=== PATIENT | female | born 1995 | race Caucasian/White ===

== ENCOUNTER 2020-02-16 10:25 | Emergency (ER) | payer SELFPAY ==
[2020-02-16] MEDS ORDERED: MORPHINE SULFATE INJ 10 MG/ML VIAL IV ONE (10:43)
[2020-02-16] MEDS ORDERED: ONDANSETRON INJ 4 MG/2 ML VIAL IV ONE (10:44)
[2020-02-16 10:54] VITALS: O2SAT 99
--- NOTE | 2020-02-16 10:54 | ED.PDOC ---
History of Present Illness - General Chief Complaint: Abdominal Pain Stated Complaint: Back and abdominal pain Time Seen by Provider: 02/16/20 10:38 Information Source: patient Exam Limitations: no limitations Additional Information: The patient is a 25 year old with no significant PMH who presents to the ED complaining of abdominal pain. States that she has right flank pain that woke her from sleep this morning around 0200. The pain is sharp, radiates toward the front. She does not have associated fever, nausea or vomiting. No diarrhea. Does not think that she is . States that she last urinated yesterday and it was orange in color. No other complaints at this time. Review of Systems - Review of Systems Constitutional: Denies: chills, fever EENTM: States: no symptoms reported Respiratory: States: no symptoms reported Cardiology: States: no symptoms reported Gastrointestinal/Abdominal: States: abdominal pain. Denies: diarrhea, nausea, vomiting Genitourinary: States: hematuria. Denies: dysuria, frequency Musculoskeletal: States: back pain Skin: States: no symptoms reported Neurological: States: no symptoms reported Endocrine: States: no symptoms reported Hematologic/Lymphatic: States: no symptoms reported All other Systems: No Change from Baseline Family Medical History - Family History Mother Family History: Unknown Living Status: Unknown Physical Exam - Physical Exam General Appearance: Anxious, Restless Respiratory: no respiratory distress Cardiovascular/Chest: normal peripheral pulses, regular rate, rhythm Gastrointestinal/Abdominal: normal bowel sounds, tenderness, other - Right CVAT and right flank tenderness including RUQ and RLQ. Extremity: normal range of motion, normal inspection Neurologic: no motor/sensory deficits, alert, normal mood/affect, oriented x 3 Skin Exam: normal color, warm/dry Progress - Progress Progress: 02/16/20 12:34 Patient reassessed, states that her pain has improved although she continues to have RUQ tenderness. She states that for the past week she has had intermittent RUQ pain, worse with eating. 02/16/20 13:32 Patient reassessed, feeling better. Discussed labs and imaging, will continue outpatient symptomatic management for peptic ulcer disease. No evidence for ureterolithiasis or cholelithiasis. No other acute process. - Results/Orders Results/Orders: Laboratory Results - last 24 hr 02/16/20 02/16/20 02/16/20 10:50 10:50 10:50 WBC 9.0 RBC 5.10 Hgb 15.6 Hct 46.4 MCV 90.8 MCH 30.5 MCHC 33.6 RDW 12.8 Plt Count 240 MPV 8.7 Absolute Neuts (auto) 5.30 Absolute Lymphs (auto) 2.90 Absolute Monos (auto) 0.80 Absolute Eos (auto) 0.10 Absolute Basos (auto) 0.00 Neutrophils % 58.4 Lymphocytes % 31.9 Monocytes % 8.5 Eosinophils % 0.8 L Basophils % 0.4 Sodium 139 Potassium 3.9 Chloride 105 Carbon Dioxide 26 Anion Gap 11.9 L BUN 15 Creatinine 0.75 BUN/Creatinine Ratio 20.0 Random Glucose 101 Serum Osmolality 278.5 Calcium 9.3 Total Bilirubin 0.4 AST 22 ALT 18 Alkaline Phosphatase 33 L Serum Total Protein 8.5 H Albumin 4.2 Globulin 4.3 H Albumin/Globulin Ratio 1.0 L Lipase 27 Serum HCG, Qual Negative Urine Color Urine Appearance Urine pH Ur Specific [employer] Urine Protein Urine Glucose (UA) Urine Ketones Urine Blood Urine Nitrite Urine Bilirubin Urine Urobilinogen Ur Leukocyte Esterase Urine RBC Urine WBC Ur Epithelial Cells Urine Bacteria 02/16/20 11:05 WBC RBC Hgb Hct MCV MCH MCHC RDW Plt Count MPV Absolute Neuts (auto) Absolute Lymphs (auto) Absolute Monos (auto) Absolute Eos (auto) Absolute Basos (auto) Neutrophils % Lymphocytes % Monocytes % Eosinophils % Basophils % Sodium Potassium Chloride Carbon Dioxide Anion Gap BUN Creatinine BUN/Creatinine Ratio Random Glucose Serum Osmolality Calcium Total Bilirubin AST ALT Alkaline Phosphatase Serum Total Protein Albumin Globulin Albumin/Globulin Ratio Lipase Serum HCG, Qual Urine Color Yellow Urine Appearance Clear Urine pH 7.0 Ur Specific [employer] 1.020 Urine Protein Negative Urine Glucose (UA) Negative Urine Ketones Negative Urine Blood Moderate H Urine Nitrite Negative Urine Bilirubin Negative Urine Urobilinogen 0.2 Ur Leukocyte Esterase Negative Urine RBC 0-1 Urine WBC 0 Ur Epithelial Cells 5-10 Urine Bacteria 1+ - EKG/XRAY/CT CT: No stones, large gallbladder, diverticulosis. No acute process CT Ordered: Yes Departure - Departure Clinical Impression: Abdominal pain Qualifiers: Abdominal location: right upper quadrant Qualified Code(s): R10.11 - Right upper quadrant pain Time of Disposition: 13:34 Disposition: Discharge to Home or Self Care Condition: Fair Departure Forms: ED Discharge - Pt. Copy, Patient Portal Self Enrollment Instructions: DI for Abdominal Pain-Adult Diet: resume usual diet Activity: increase activity as tolerated Prescriptions: Dicyclomine HCl [Bentyl] 20 mg PO Q6HR #20 tab Pantoprazole Tablet [Protonix] 40 mg PO ACBK #20 tab Home Medications: Ambulatory Orders Dicyclomine HCl [Bentyl] 20 mg PO Q6HR #20 tab 02/16/20 Pantoprazole Tablet [Protonix] 40 mg PO ACBK #20 tab 02/16/20
--- NOTE | 2020-02-16 12:23 | CT ---
EXAM DESCRIPTION: Abdoment/Pelvis w/o Contrast: Computed Tomography. CLINICAL HISTORY: 25 years Female Right flank pain, hematuria,, concern for kidney stones. COMPARISON: None. TECHNIQUE: Spiral-axial scans 2.5 x 2.5 mm intervals through the abdomen and pelvis without oral or IV contrast. Coronal and sagittal 2.0 mm reconstructions. Axial - 1.25 mm reconstructions.Total Exam DLP: 973 mGy-cm. This exam was performed according to our departmental CT dose-optimization program which includes automated exposure control, adjustment of the mA and/or kV according to patient size and/or use of iterative reconstruction technique; to reduce radiation dose to as low as reasonably achievable (ALARA). FINDINGS: Kidneys and Ureters: No radiodense stones or other material in the kidneys bilaterally. No hydronephrosis or perirenal fluid. Bilateral ureters are unremarkable with no dilation or periureteral edema. Pelvic Organs: No significant bladder wall thickening. Minimal distention. No radiodense stones. No fatty stranding abutting the bladder. Normal position of the uterus. Bilateral ovaries are visualized and bilateral fallopian tube clips. No free fluid in the pelvis. No inflammatory changes. Lung bases and pleura: Negative. Liver, stomach, spleen, and adrenal glands: Long axis right lobe liver 17 cm. Normal density. Stomach and other organs negative. Pancreas, Gallbladder, and Ducts: Minimal distention of the gallbladder but no surrounding inflammatory changes. Duct and pancreas negative. Mesentery: No free air or free fluid. No fatty stranding or fascial thickening. Aorta: Unremarkable. Small Bowel: Negative. Terminal Ileum/Cecum: Normal caliber with gas and fecal material. Appendix visualized. No surrounding inflammatory changes. Colon: Mild distention with gas and fecal matter. Small diverticula distally with no complications. Spine and Bony Pelvis: Sclerosis abutting the inferior left SI joint. Calcification in the T9-T10 disc space. Abdominal Wall/Back Soft Tissues: Small lymph nodes abutting the inguinal canal. No abdominal wall defects. IMPRESSION: 1. No radiodense stones in the kidneys ureters or bladder. No hydronephrosis or hydroureter. Evaluation of the bladder limited due to lack of IV contrast. 2. Liver size borderline enlarged with normal density. Minimal gallbladder distention but no wall thickening or surrounding inflammatory changes. No ascites. 3. Early distal diverticulosis colon with no complications. Electronically signed by: Clive Neville MD 02/16/2020 12:21 PM CDT
--- NOTE | 2020-02-16 13:14 | US ---
Procedure: US GALLBLADDER Exam Date: 02/16/2020 Ordering Provider: Ibrahima Geronimo Clinical Indication: RUQ, right flank pain Comparison: 02/16/2020 CT abdomen pelvis Technique: Real-time ultrasonography was obtained over the right upper quadrant and labor representative images were recorded. Findings: There are no gallstones within the gallbladder lumen. There is no gallbladder wall thickening or pericholecystic fluid. Patient reports tenderness with transducer pressure over the gallbladder. The common bile duct is normal in size measuring 4 mm. The liver is normal in size and contour. There is normal echogenicity throughout the liver. There is no hepatic mass. There is no intrahepatic ductal dilatation. Visualized pancreas, aorta and IVC are unremarkable. No stones or hydronephrosis in the right kidney. There is no ascites. Impression: 1. No findings to account for the patient's right upper quadrant pain. 2. Patient reports tenderness with transducer pressure over the gallbladder. Electronically signed by: Sanket Barton MD 02/16/2020 1:12 PM CDT
[2020-02-16 13:56] VITALS: BP 138/91; TEMP 98.4
== END 2020-02-16 13:50 | disposition home or self-care (01) ==
LOC: ER 10:25
DX: R10.11 Right upper quadrant pain (principal)
CPT/HCPCS: 36415; 74176; 76705; 80053; 81001; 83690; 84703; 85025; J2270; J2405